=== PATIENT | female | born 1950 | race Caucasian/White ===

== ENCOUNTER 2017-02-22 09:49 | Emergency (ER) | payer MEDICARE, OTHER ==
[~2017-02-22] VITALS: Ht 152.4 cm; Wt 77.1 kg
--- NOTE | ~2017-02-22 | CR173 ---
[facility] A Service of [facility] & [facility] RADIOLOGY TEXT RESULTS PATIENT: PAVEL SMITH LOCATION: [facility] : 46 UNIT #: [id number] AGE: [address]: Kate Carrillo MD SEX: F ORDER DR: [id number] [facility] [place] [address] [place], [place] [address] [id number] E MR#: [id number] Acc #: [id number] NAME: PAVEL SMITH : 1950 SEX: F STUDY DATE/TIME: 02/22/2017 11:03 UNIT: [facility] ROOM: STUDY DESCRIPTION: CR Knee 3 Views Rt Attending Physician: Kate Carrillo M.D. Ordering Physician: Kate Carrillo M.D. Primary Care Physician: Jose Aquino M.D. MEDICAL IMAGING REPORT This report is preliminary unless electronic signature is present EXAM Right knee. HISTORY Knee pain after falling 1 month ago. TECHNIQUE 3 views of the right knee were obtained. FINDINGS Mild degenerative changes are seen at the patellofemoral joint and along the medial joint line with small osteophytes. There is no evidence of fracture. A small joint effusion is noted. There is no evidence of osteochondral fragment or intraarticular loose body. IMPRESSION Mild changes of osteoarthritis in the medial compartment and patellofemoral joint. Small joint effusion. No acute bony abnormalities are seen. Dictated by... Arun Atknison M.D. THIS IS AN ELECTRONICALLY VERIFIED REPORT Arun Atkinson M.D. at 02/24/2017 6:00 AM BHUMIKAF/al TD: 02/23/2017 07:32 JOB #: [id number] MEDICAL IMAGING REPORT Page 1 of 1 COPY
--- NOTE | ~2017-02-22 | CR253 ---
[facility] A Service of [facility] & [facility] RADIOLOGY TEXT RESULTS PATIENT: PAVEL SMITH LOCATION: [facility] : 46 UNIT #: [id number] AGE: [address]: Kate Carrillo MD SEX: F ORDER DR: [id number] [facility] [place] [address] [place], [place] [address] [id number] E MR#: [id number] Acc #: [id number] NAME: PAVEL SMITH : 1950 SEX: F STUDY DATE/TIME: 02/22/2017 11:03 UNIT: [facility] ROOM: STUDY DESCRIPTION: CR Tibia and Fibula 2 Views Rt Attending Physician: Kate Carrillo M.D. Ordering Physician: Kate Carrillo M.D. Primary Care Physician: Jose Aquino M.D. MEDICAL IMAGING REPORT This report is preliminary unless electronic signature is present EXAM Right tibia and fibula. HISTORY Leg pain after falling 1 month ago. TECHNIQUE 2 views tibia fibula were obtained. FINDINGS There is no evidence of fracture, dislocation, or radiopaque foreign body. IMPRESSION Normal tibia and fibula. Dictated by... Arun Atkinson M.D. THIS IS AN ELECTRONICALLY VERIFIED REPORT Arun Atkinson M.D. at 02/24/2017 6:00 AM RLF/al TD: 02/23/2017 07:34 JOB #: [id number] MEDICAL IMAGING REPORT Page 1 of 1 COPY
[~2017-02-22 09:49] MED LIST: ACID CONTROL150 MG PO; ALBUTEROL17 GM INH; AUGMENTIN PO; CARAFATE1 G PO; DOXYCYCLINE PO; DUONEB 2.5-0.5 M3 ML NEB; HYCODAN60 ML 5MG/ PO; HYDROCODONE-GU480 ML PO; KLONOPIN PO; KLONOPIN0.5 MG PO; LAMISIL AT TP; LISINOPRIL PO; LORTAB 7.5-5001 TAB PO; PHENERGAN DM1 ML; PREDNISONE1 MG PO; PREDNISONE10 MG PO; PRINIVIL10 MG PO; ZANTAC PO; ZITHROMAX PO; ZITHROMAX1 G/PKT PO
== END 2017-02-22 11:45 | disposition home or self-care (01) ==
LOC: CED 09:49
DX: S89.92XA Unspecified injury of left lower leg, initial encounter (principal); F17.200 Nicotine dependence, unspecified, uncomplicated; I10 Essential (primary) hypertension; J44.9 Chronic obstructive pulmonary disease, unspecified; K21.9 Gastro-esophageal reflux disease without esophagitis; Z98.890 Other specified postprocedural states; Z88.1 Allergy status to other antibiotic agents; Z88.8 Allergy status to other drugs, medicaments and biological substances; W19.XXXA Unspecified fall, initial encounter; Y92.009 Unspecified place in unspecified non-institutional (private) residence as the place of occurrence of the external cause
CPT/HCPCS: 73562; 73590; 99283